=== PATIENT | female | born 1985 | race Caucasian/White ===

== ENCOUNTER 2025-04-12 07:49 | Emergency (ER) | payer MEDICAID ==
[~2025-04-12] VITALS: Ht 162.6 cm; Wt 72.7 kg
[2025-04-12 07:51] VITALS: TEMP 98.1
[2025-04-12] MEDS: ONDANSETRON HCL 4 MG/2 ML VIAL IVP ONE ×2 (08:24→10:01)
[2025-04-12] MEDS: SODIUM CHLORIDE 0.9% 1,000 ML IV ONE (08:24)
[2025-04-12] MEDS: KETOROLAC TROMETHAMINE 30 MG/ML VIAL IVP ONE ×2 (08:28→09:52)
[2025-04-12 08:29] LABS: PLATELET COUNT (AUTO) 293 K/uL (150-450); RED BLOOD CELL COUNT(AUTO) 4.36 MIL/uL (4.00-5.20); RED CELL DISTRIBUTION WIDTH 15.7 % (11.5-14.5); WHITE BLOOD COUNT (AUTO) 6.5 K/uL (4.5-11.0)
[2025-04-12 08:37] LABS: CALCIUM, TOTAL 8.6 mg/dL (8.8-10.5); CREATININE 1.24 mg/dL (0.60-1.30); GLOMERULAR FILTR. RATE CALC 48.0 mL/min (>60); GLUCOSE,RANDOM 108.0 mg/dL (70-110); SODIUM SERUM 138.0 mmol/L (136-145); UREA NITROGEN, BLOOD 13.0 mg/dL (7-18)
[2025-04-12 09:33] LABS: APPEARANCE,URINE CLEAR (CLEAR); GLUCOSE, URINE (UA) NEGATIVE (NEGATIVE); LEUKOCYTE ESTERASE ,URINE NEGATIVE (NEGATIVE); NITRATE,URINE NEGATIVE (NEGATIVE); OCCULT BLOOD,URINE NEGATIVE (NEGATIVE); SPECIFIC GRAVITIY, URINE 1.014 (1.003-1.030)
[2025-04-12] MEDS: IOHEXOL 9 MG/ML 500 ML BOTTLE PO ONE (09:44)
[2025-04-12 11:36] VITALS: BP 146/86; PULSE 63; RESP 16; O2SAT 98
[2025-04-12] MEDS: HYDROCODONE/ACETAMINOPHEN 5-325 MG TABLET PO ONE (11:40)
[2025-04-12] MEDS: IBUPROFEN 200 MG TABLET PO ONE (11:40)
[2025-04-12] MEDS: ONDANSETRON 4 MG TABLET PO ONE (11:40)
[2025-04-12] MEDS ORDERED: IBUP-1554 PO (11:50)
[2025-04-12] MEDS ORDERED: ONDA-104 PO (11:50)
[2025-04-12] MEDS ORDERED: HYDR-4062 PO (11:50)
[2025-04-12] MEDS ORDERED: TAMS0.4C94 PO (11:50)
== END 2025-04-12 12:19 | disposition home or self-care (01) ==
LOC: EMS 07:51
DX: N20.9 Urinary calculus, unspecified (principal); Z87.442 Personal history of urinary calculi; Z90.721 Acquired absence of ovaries, unilateral
CPT/HCPCS: 99285; 74176; 96374; 76700; 96361; 96375; 80048; 81001; 83690; 84703; 85025; 36415; 96376; J1885; Q9967; J2405; Q0162; J7030